=== PATIENT | male | born 1930 | race Caucasian/White ===

== ENCOUNTER 2016-12-22 18:25 | Emergency (ER) | payer OTHER, MEDICARE ==
[2016-12-22 19:01] VITALS: RESP 20; O2SAT 94
--- NOTE | 2016-12-22 19:20 | UCPHY ---
H & P Patient Type: Established HPI/ROS: CHIEF COMPLAINT: Cough. HISTORY OF PRESENT ILLNESS: The patient is an 86-year-old male who presents with one week of productive cough. The sputum is light-colored. He denies chest pain, shortness of breath, wheezing, myalgia, chills, or fever. He has a lot of recent sick contact at his assisted living facility. He has also had dry skin and has numerous deep scratches on his legs. REVIEW OF SYSTEMS: Constitutional: No fever, no chills. Eyes: No discharge. ENT: No sore throat. Cardiovascular: No chest pain, no palpitations. Respiratory: As above. Musculoskeletal: No back pain, nor peripheral edema Skin: No rashes. Neurological: No headache. Ten review of systems performed and negative except for above Past Medical/Surgical History: Hypertension, tonsillectomy, appendectomy, RA, gout, hyperlipidemia, cataracts, migraines, CKD, CAD. Social History: Lives at assisted living facility in [place]. Smoking Status: Former smoker Physical Exam: General Appearance: Alert, no distress. Afebrile. Normal phonation. No respiratory distress. Eyes: Pupils equal and round no pallor or injection. No icterus ENT, Mouth: Mucous membranes moist. Pharynx not erythematous and without exudate. TM Clear. Neck: No adenopathy. Supple. No JVD. Trachea in midline. Respiratory: There are no retractions. Scattered rhonchi. Diminished breath sounds bilaterally in the upper but not so in the lower lobes. Cardiovascular: Regular rate and rhythm, no murmur Abdomen: Soft and nontender, no masses, bowel sounds normal. Skin: Warm and dry, no rashes. Extremities: No edema. Psychiatric: Normal affect Constitutional: Initial Vital Signs Temperature (C) 36.8 C 12/22/16 18:57 Heart Rate 82 12/22/16 18:57 Respiratory Rate 20 12/22/16 18:57 Blood Pressure 144/89 H 12/22/16 18:57 O2 Sat (%) 94 12/22/16 18:57 O2 Delivery Mode Room Air Allergies/Adverse Reactions: No Known Allergies Allergy (Verified 12/22/16 19:01) Home Medications: Medication Instructions Recorded Allopurinol [Allopurinol 300 MG 300 mg PO DAILY 05/01/12 (RX)] Spironolactone [Aldactone 25 MG 12.5 mg PO DAILY 05/01/12 (RX)] amLODIPine BESYLATE [Norvasc 10 mg 10 mg PO DAILY 05/01/12 (RX)] Bystolic 10/14/14 Aspirin 81mg (OTC) 07/20/15 Vitamin D3 (OTC) 07/20/15 Allopurinol 06/16/16 Atorvastatin Calcium 06/16/16 Leflunomide 06/16/16 Medical Decision Making - Diagnostics Imaging: Study: PA and Lateral Chest X-ray Indication: Cough. Results: I viewed the images myself on the PACS system. The radiologist interpretation is: Stable chest. Interstitial thickening in the lung bases bilaterally., no pneumonia. ED Course/Re-evaluation: An IV was established and labs ordered. Chest x-ray ordered. 30: Chest x-ray shows no pneumonia. I discussed this with the patient and answered his questions. He is given an albuterol inhaler due to late hour Differential Diagnosis: Diagnostic considerations include, but are not limited to, the following: URI, sinusitis, pharyngitis, otitis media, pneumonia, allergy. - Data Points Laboratory Results: Laboratory Results 12/22/16 20:20 Medications Given: Discontinued Medications Albuterol Sulfate (Proventil Inh Prepack) 1 mdi EUGENIO PAYNE ONE Stop: 12/22/16 20:34 Last Admin: 12/22/16 21:14 Dose: 1 mdi Departure - Departure Disposition: Home, Routine, Self-Care Clinical Impression: Bronchitis Condition: Good Instructions: Albuterol (By breathing), Acute Bronchitis (ED) Additional Instructions: Follow up with your primary care provider on Sunday if symptoms are not improving. In the interim, the Proventil inhaler will help relieve the coughing to some degree. Eucerin cream helps with the skin changes that were having on your legs. Also trim nails very closely. Return for any serious worsening of condition. Referrals: John Rodriguez MD [Primary Care Provider] - As per Instructions - PQRS PQRS Measurement: 134: Depression screening and followup, MD-PHQ2 (12 years and older) Over the last 2 weeks, how often have you been bothered by any of the following problems? 1. Feeling down, depressed, or hopeless? 2. Little interest or pleasure in doing things? [Patient answered no to both 1 and 2] [Patient answered yes to at least 1, referred to PCP for further evaluation.] 130: Documentation of medications. [Reviewed all patient medications, doses, route and frequency.] [Unable to obtain meds due to] [critical illness] [altered mental status] [ patient did not know]. 226: Do you smoke? [Yes, counseled to stop.] [No.] 47: 65 and older: Advanced care planning. Patient designates surrogate decision maker as [parent] [spouse] [ ]. [Patient refused.] [Patient has advanced directive.] 51: 18 years old and older with diagnosis of COPD, spirometry performance. [Patient has no history of COPD] 52: 18 years old and older with COPD and symptoms of COPD or FEV1<60% predicted prescribed a B Agonist. [Spirometry not performed; equipment not available.] Report Scribed for: Segun Jessica Report Scribed by: Parveen Kumar Date of Report: 12/22/16 Time of Report: 19:20 Physician Review and Approval Statement: 12/22/16 19:20 Portions of this note were transcribed by a medical and scientific illustrator. I personally performed a history, physical exam, medical decision making, and confirmed accuracy of information the transcribed note.
[2016-12-22 20:27] LABS: % IMMATURE GRANULYOCYTES 0.3 % (0.0-1.1); ABSOLUTE IMMATURE GRANULOCYTES 0.02 10^3/uL (0.00-0.10); ADD DIFF? NO; ADD MORPH? NO; ADD SCAN? NO; ATYPICAL LYMPHOCYTE FLAG 10 (0-99); FRAGMENT RBC FLAG 0 (0-99); HEMATOCRIT 43.7 % (40.0-51.0); HEMOGLOBIN 14.5 g/dL (13.7-17.5); LEFT SHIFT FLG 0 (0-99); LIPEMIA HEMOLYSIS FLAG 80 (0-99); MEAN CELL HEMOGLOBIN 30.1 pg (27.9-34.1); MEAN CELL HEMOGLOBIN CONCENTR. 33.2 g/dL (32.4-36.7); MEAN CELL VOLUME 90.7 fL (81.5-99.8); MEAN PLATELET VOLUME 9.9 fL (8.7-11.7); PLATELET CLUMPS FLAG 0 (0-99); PLATELET COUNT 228 10^3/uL (150-400); RED BLOOD CELL COUNT 4.82 10^6/uL (4.40-6.38); RED CELL DISTRIBUTION WIDTH 14.5 % (11.5-15.2)
[2016-12-22] MEDS ORDERED: ALBUTEROL INH PREPACK MDI TAKEHOME ONE (20:33)
[2016-12-22 21:18] VITALS: BP 176/92; PULSE 75; TEMP 97.9
== END 2016-12-22 21:18 | disposition home or self-care (01) ==
LOC: CED 18:25
DX: R05 Cough (principal); S80.811A Abrasion, right lower leg, initial encounter; S80.812A Abrasion, left lower leg, initial encounter; Z87.891 Personal history of nicotine dependence
CPT/HCPCS: 71020; G0463; 83605-PO; 85025-PO

== ENCOUNTER → 2016-12-26 | Outpatient (CLI) | payer OTHER, MEDICARE | LOC: BHFA 13:15 | PROVIDERS: ATTEND Internal Medicine Cardiovascular Disease | DX: I45.2 Bifascicular block (principal); I25.10 Atherosclerotic heart disease of native coronary artery without angina pectoris; I10 Essential (primary) hypertension; E78.5 Hyperlipidemia, unspecified ==

== ENCOUNTER 2019-03-30 10:59 | Emergency (ER) | payer OTHER, MEDICARE | END 2019-03-30 12:35 | disposition home or self-care (01) ==